=== PATIENT | female | born 2000 | race American Indian/Alaskan Native ===

== ENCOUNTER 2019-09-22 06:32 | Emergency (ER) | payer MEDICAID ==
[2019-09-22 08:13] LABS: Basophils % (Auto) 0.5 % (0.0-1.8); Eosinophils # (Auto) 0.1 K/mm3 (0.0-0.4); Eosinophils % (Auto) 0.9 % (0.0-4.3); Hematocrit 26.6 % (30.3-42.9); Hemoglobin 9.2 gm/dl (10.1-14.3); Lymphocytes # (Auto) 2.1 K/mm3 (1.2-5.4); Lymphocytes % (Auto) 36.8 % (13.4-35.0); Mean Corpuscular HGB Conc 35 % (30-34); Mean Corpuscular Volume 101 fl (79-97); Monocytes # (Auto) 0.4 K/mm3 (0.0-0.8); Monocytes % (Auto) 7.3 % (0.0-7.3); Platelet Count 222 K/mm3 (140-440); Red Blood Count 2.64 M/mm3 (3.65-5.03); Red Cell Distribution Width 13.4 % (13.2-15.2)
[2019-09-22 09:32] LABS: Alanine Aminotransferase 29 units/L (7-56); Albumin 4.3 g/dL (3.9-5); BUN/Creatinine Ratio 10; Blood Urea Nitrogen 10 mg/dL (7-17); Calcium 7.7 mg/dL (8.4-10.2); Hemolysis Index 6
--- NOTE | 2019-09-22 09:39 | Emergency Department Report ---
ED General Adult HPI - General Chief complaint: Abdominal Pain Stated complaint: W/ABD PAIN CRAMPING Time Seen by Provider: 09/22/19 08:56 Source: patient Mode of arrival: Ambulatory Limitations: No Limitations - History of Present Illness Initial comments: Patient is a 19-year-old female presents emergency room with complaints of generalized abdominal cramping and lightheadedness began yesterday. pt is currently but does not know how far along she is. She has not yet seen an SPECIAL NEEDS CAREGIVER secondary to to waiting for her insurance. She denies any nausea, vomiting, diarrhea, fever, urinary symptoms, vaginal discharge, vaginal bleedin g, headache. She states her last menstrual cycle was in June but she has irregular cycles. She states that she is taking a vitamin. Patient has a past medical history of thyroid cancer status post surgical resection. She denies any allergies medications. She states is her first . - Related Data Previous Rx's Medication Instructions Recorded Last Taken Type 21/Iron Fu/Folic Acid 1 each PO DAILY #30 tablet 08/16/19 Unknown Rx [ Complete Caplet] Allergies Allergy/AdvReac Type Severity Reaction Status Date / Time No Known Allergies Allergy Unverified 08/16/19 09:08 ED Review of Systems ROS: Stated complaint: W/ABD PAIN CRAMPING Other details as noted in HPI Comment: All other systems reviewed and negative ED Past Medical Hx - Past Medical History Previous Medical History?: Yes Additional medical history: Hx Thyroid CA - Surgical History Past Surgical History?: Yes Additional Surgical History: Thyroid surgery - Social History Smoking Status: Never Smoker Substance Use Type: None - Medications Home Medications: Home Medications Medication Instructions Recorded Confirmed Last Taken Type 21/Iron Fu/Folic Acid 1 each PO DAILY #30 tablet 08/16/19 Unknown Rx [ Complete Caplet] ED Physical Exam - General Limitations: No Limitations General appearance: alert, in no apparent distress - Head Head exam: Present: atraumatic, normocephalic - Eye Eye exam: Present: normal appearance - ENT ENT exam: Present: mucous membranes moist - Respiratory Respiratory exam: Present: normal lung sounds bilaterally. Absent: respiratory distress, wheezes, rales, rhonchi, stridor, chest wall tenderness, accessory muscle use, decreased breath sounds, prolonged expiratory - Cardiovascular Cardiovascular Exam: Present: regular rate, normal rhythm, normal heart sounds. Absent: systolic murmur, diastolic murmur, rubs, gallop - GI/Abdominal GI/Abdominal exam: Present: soft, normal bowel sounds. Absent: distended, tenderness, guarding, rebound, rigid - Neurological Exam Neurological exam: Present: alert, oriented X3 - Psychiatric Psychiatric exam: Present: normal affect, normal mood - Skin Skin exam: Present: warm, dry, intact ED Course Vital Signs 09/22/19 06:40 Temperature 98.0 F Pulse Rate 79 Respiratory 14 Rate Blood Pressure 113/57 O2 Sat by Pulse 100 Oximetry ED Medical Decision Making - Lab Data Result diagrams: 09/22/19 07:01 09/22/19 07:01 Lab Results 09/22/19 09/22/19 09/22/19 Range/Units 07:01 07:01 07:01 WBC 5.8 (4.5-11.0) K/mm3 RBC 2.64 L (3.65-5.03) M/mm3 Hgb 9.2 L (10.1-14.3) gm/dl Hct 26.6 L (30.3-42.9) % MCV 101 H (79-97) fl MCH 35 H (28-32) pg MCHC 35 H (30-34) % RDW 13.4 (13.2-15.2) % Plt Count 222 (140-440) K/mm3 Lymph % (Auto) 36.8 H (13.4-35.0) % [place] % (Auto) 7.3 (0.0-7.3) % Eos % (Auto) 0.9 (0.0-4.3) % Baso % (Auto) 0.5 (0.0-1.8) % Lymph # 2.1 (1.2-5.4) K/mm3 [place] # 0.4 (0.0-0.8) K/mm3 Eos # 0.1 (0.0-0.4) K/mm3 Baso # 0.0 (0.0-0.1) K/mm3 Seg Neutrophils % 54.5 (40.0-70.0) % Seg Neutrophils # 3.1 (1.8-7.7) K/mm3 Sodium 138 (137-145) mmol/L Potassium 3.9 (3.6-5.0) mmol/L Chloride 102.7 (98-107) mmol/L Carbon Dioxide 20 L (22-30) mmol/L Anion Gap 19 mmol/L BUN 10 (7-17) mg/dL Creatinine 1.0 (0.7-1.2) mg/dL Estimated GFR > 60 ml/min BUN/Creatinine Ratio 10 % Glucose 76 (65-100) mg/dL Calcium 7.7 L (8.4-10.2) mg/dL Total Bilirubin 0.30 (0.1-1.2) mg/dL AST 43 H (5-40) units/L ALT 29 (7-56) units/L Alkaline Phosphatase 49 (35-129) units/L Total Protein 6.9 (6.3-8.2) g/dL Albumin 4.3 (3.9-5) g/dL Albumin/Globulin Ratio 1.7 % HCG, Quant 22379 H (0-4) mIU/mL Urine Color (Yellow) Urine Turbidity (Clear) Urine pH (5.0-7.0) Ur Specific [place] (1.003-1.030) Urine Protein (Negative) mg/dL Urine Glucose (UA) (Negative) mg/dL Urine Ketones (Negative) mg/dL Urine Blood (Negative) Urine Nitrite (Negative) Urine Bilirubin (Negative) Urine Urobilinogen (<2.0) mg/dL Ur Leukocyte Esterase (Negative) Urine WBC (Auto) (0.0-6.0) /HPF Urine RBC (Auto) (0.0-6.0) /HPF U Epithel Cells (Auto) (0-13.0) /HPF Urine Mucus /HPF 09/22/19 Range/Units 09:14 WBC (4.5-11.0) K/mm3 RBC (3.65-5.03) M/mm3 Hgb (10.1-14.3) gm/dl Hct (30.3-42.9) % MCV (79-97) fl MCH (28-32) pg MCHC (30-34) % RDW (13.2-15.2) % Plt Count (140-440) K/mm3 Lymph % (Auto) (13.4-35.0) % [place] % (Auto) (0.0-7.3) % Eos % (Auto) (0.0-4.3) % Baso % (Auto) (0.0-1.8) % Lymph # (1.2-5.4) K/mm3 [place] # (0.0-0.8) K/mm3 Eos # (0.0-0.4) K/mm3 Baso # (0.0-0.1) K/mm3 Seg Neutrophils % (40.0-70.0) % Seg Neutrophils # (1.8-7.7) K/mm3 Sodium (137-145) mmol/L Potassium (3.6-5.0) mmol/L Chloride (98-107) mmol/L Carbon Dioxide (22-30) mmol/L Anion Gap mmol/L BUN (7-17) mg/dL Creatinine (0.7-1.2) mg/dL Estimated GFR ml/min BUN/Creatinine Ratio % Glucose (65-100) mg/dL Calcium (8.4-10.2) mg/dL Total Bilirubin (0.1-1.2) mg/dL AST (5-40) units/L ALT (7-56) units/L Alkaline Phosphatase (35-129) units/L Total Protein (6.3-8.2) g/dL Albumin (3.9-5) g/dL Albumin/Globulin Ratio % HCG, Quant (0-4) mIU/mL Urine Color Yellow (Yellow) Urine Turbidity Slightly-cloudy (Clear) Urine pH 5.0 (5.0-7.0) Ur Specific [place] 1.028 (1.003-1.030) Urine Protein <15 mg/dl (Negative) mg/dL Urine Glucose (UA) Neg (Negative) mg/dL Urine Ketones Neg (Negative) mg/dL Urine Blood Neg (Negative) Urine Nitrite Neg (Negative) Urine Bilirubin Neg (Negative) Urine Urobilinogen < 2.0 (<2.0) mg/dL Ur Leukocyte Esterase Neg (Negative) Urine WBC (Auto) 2.0 (0.0-6.0) /HPF Urine RBC (Auto) 5.0 (0.0-6.0) /HPF U Epithel Cells (Auto) 5.0 (0-13.0) /HPF Urine Mucus 1+ /HPF - Radiology Data Radiology results: report reviewed US OB <= 14 weeks fetus, US OB transvaginal INDICATION / CLINICAL INFORMATION: , abd pain. COMPARISON: 08/16/2019 FINDINGS: Single, viable intrauterine . heart rate 154. [place]-rump length measures 27.6 mm, corresponding to a gestational age of 9 weeks 4 days. Yolk sac is clearly demonstrated. Right ovary is normal. Left ovary could not be identified. There is a small to moderate amount of free fluid in the cul-de-sac. This fluid is anechoic and not thought to repr esent hemorrhage. IMPRESSION: 1. Single, viable 9 week 4 day intrauterine . Signer Name: Harry Mace MD Signed: 09/22/2019 10:42 AM Workstation Name: [id number] Transcribed By: TM Dictated By: Harry Mace MD Electronically Authenticated By: Harry Mace MD Signed Date/Time: 09/22/19 1042 DD/ 1035 TD/TT: - Medical Decision Making Patient is a 19-year-old female presents emergency room with complaints of generalized abdominal cramping and lightheadedness began yesterday. pt is currently but does not know how far along she is. She has not yet seen an SPECIAL NEEDS CAREGIVER secondary to to waiting for her insurance. She denies any nausea, vomiting, diarrhea, fever, urinary symptoms, vaginal discharge, vaginal bleeding, headache. She states her last menstrual cycle was in June but she has irregular cycles. She states that she is taking a vitamin. Patient has a past medical history of thyroid cancer status post surgical resection. She denies any allergies medications. She states is her first . vitals are normal. no abd TTP, no guarding, no rebound, no rigidity. labs with mild anemia which is improved from prior, discussed with pt and advised to [place] [id number]. UA without evidence of UTI or dehydration. OB US: 1. Single, viable 9 week 4 day intrauterine . discussed all results with pt and answered questions. advised pt to please increase your fluid intake over the next several days. Please take your vitamin daily. Follow up with a SPECIAL NEEDS CAREGIVER in the next 2- 3 days to receive your care. Return to the emergency room for any new or worsening symptoms. - Differential Diagnosis IUP, ectopic, ovarian cyst, subchorionic hemorrhage, UTI, electrolyte,anemi Critical care attestation.: If time is entered above; I have spent that time in minutes in the direct care of this critically ill patient, excluding procedure time. ED Disposition Clinical Impression: Lightheaded Qualifiers: Weeks of gestation: 9 weeks Qualified Code(s): Z3A.09 - 9 weeks gestation of p regnancy Abdominal pain Qualifiers: Abdominal location: generalized Qualified Code(s): R10.84 - Generalized abdominal pain Anemia Qualifiers: Anemia type: unspecified type Qualified Code(s): D64.9 - Anemia, unspecified Disposition: DC- TO HOME OR SELFCARE Is pt being admited?: No Does the pt Need Aspirin: No Condition: Stable Instructions: (ED), Iron Rich Diet (ED), Abdominal Pain in (ED), Anemia (ED) Additional Instructions: Please increase your fluid intake over the next several days. Please take your vitamin daily. Follow up with a SPECIAL NEEDS CAREGIVER in the next 2-3 days to receive your care. Return to the emergency room for any new or worsening symp toms. Referrals: [facility] [Provider Group] - 2-3 Days [facility] [Provider Group] - 2-3 Days [facility] [Provider Group] - 2-3 Days Forms: Work/School Release Form(ED) Time of Disposition: 11:13 Print Language: ARMENIAN
[2019-09-22 09:40] LABS: Bilirubin,Urine NEG (Negative); Blood,Urine NEG (Negative); Color,Urine Yellow (Yellow); Mucus,Urine 1+ /HPF; Protein,Urine <15 mg/dL mg/dL (Negative); Urobilinogen,Urine < 2.0 mg/dL (<2.0)
--- NOTE | 2019-09-22 10:46 | Ultrasound Report ---
US OB <= 14 weeks fetus, US OB transvaginal INDICATION / CLINICAL INFORMATION: , abd pain. COMPARISON: 08/16/2019 FINDINGS: Single, viable intrauterine . heart rate 154. [place]-rump length measures 27.6 mm, corresponding to a gestational age of 9 weeks 4 days. Yolk sac is clearly demonstrated. Right ovary is normal. Left ovary could not be identified. There is a small to moderate amount of gallito e fluid in the cul-de-sac. This fluid is anechoic and not thought to represent hemorrhage. IMPRESSION: 1. Single, viable 9 week 4 day intrauterine . Signer Name: Harry Mace MD Signed: 09/22/2019 10:42 AM Workstation Name: [id number]
[2019-09-22 12:23] VITALS: BP 106/73
== END 2019-09-22 11:40 | disposition home or self-care (01) ==
LOC: ED 06:32
DX: O99.011 Anemia complicating pregnancy, first trimester (principal); O26.891 Other specified pregnancy related conditions, first trimester; R10.9 Unspecified abdominal pain; R42 Dizziness and giddiness; Z98.890 Other specified postprocedural states; Z79.899 Other long term (current) drug therapy; Z85.850 Personal history of malignant neoplasm of thyroid; Z3A.09 9 weeks gestation of pregnancy
CPT/HCPCS: 36415; 76801; 76817; 80053; 81001; 84702; 85025

== ENCOUNTER 2020-10-23 08:20 | Emergency (ER) | payer MEDICAID ==
--- NOTE | 2020-10-23 08:39 | Event Note ---
ED Screening Note ED Screening Note: Patient is a 20-year-old female that comes to the emergency room with low back pain, abdominal pain, chest pain. She has had a thyroidectomy and has been off Synthroid for over a year. Patient states she was seen at [place] for her thyroid and they referred her to a clinic but she never followed up. She endorses chills and nausea and vomiting. This is occurred since Wednesday. Patient endorses weakness and fatigue. She is a cigarette smoker. Denies drugs or alcohol. This initial assessment/diagnostic orders/clinical plan/treatment(s) is/are subject to change based on patients health status, clinical progression and re- assessment by fellow clinical providers in the ED. Further treatment and workup at subsequent clinical providers discretion. Patient/guardian urged not to elope from the ED as their condition may be serious if not clinically assessed and managed. Initial orders include: labs/ua
[2020-10-23 09:00] LABS: Hematocrit 24.2 % (30.3-42.9); Hemoglobin 8.4 gm/dl (10.1-14.3); Mean Corpuscular HGB Conc 35 % (30-34); Mean Corpuscular Volume 100 fl (79-97); Platelet Count 222 K/mm3 (140-440); Red Blood Count 2.42 M/mm3 (3.65-5.03); Red Cell Distribution Width 13.2 % (13.2-15.2)
[2020-10-23 09:21] LABS: Albumin 4.9 g/dL (3.9-5)
[2020-10-23 09:28] LABS: Bilirubin,Urine NEG (Negative); Blood,Urine NEG (Negative); Color,Urine Yellow (Yellow); Hyaline Casts,Urine 3 /LPF; Mucus,Urine 2+ /HPF
[2020-10-23 09:31] LABS: HCG Qualitative,Urine Negative (Negative)
[2020-10-23 09:35] LABS: Calcium 6.2 mg/dL (8.4-10.2)
--- NOTE | 2020-10-23 10:11 | Emergency Department Report ---
ED General Adult HPI - General Chief complaint: Abdominal Pain Stated complaint: STOMACH,BACK,CHEST PAIN/VOMITTING Time Seen by Provider: 10/23/20 08:37 Source: patient Mode of arrival: Ambulatory Limitations: No Limitations - History of Present Illness Initial comments: Chief complaint: "I hurt all over." HPI: This is a 20-year-old female with history of anemia, thyroid cancer status post thyroidectomy, severe obesity who presents with body aches chest pain abdominal pain back pain for the past 5 days. She also has had chills nausea vomiting sore throat. She works as a sewer cleaner in a retail center. No known sick contacts. Back mild lower ache. Chest mild heaviness. Stomach feels like queasiness. She is currently pain-free. She has not taken Synthroid in over a year. -: Gradual, days(s) (5 days) Location: chest, back, abdomen Severity scale (0 -10): 0 Consistency: now resolved Improves with: none Worsens with: none Associated Symptoms: other (Chills sore throat) Treatments Prior to Arrival: none - Related Data Previous Rx's Medication Instructions Recorded Last Taken Type Levothyroxine [Synthroid] 50 mcg PO QAM #30 tablet 10/23/20 Unknown Rx Allergies Allergy/AdvReac Type Severity Reaction Status Date / Time No Known Allergies Allergy Unverified 08/16/19 09:08 ED Review of Systems ROS: Stated complaint: STOMACH,BACK,CHEST PAIN/VOMITTING Other details as noted in HPI Comment: All other systems reviewed and negative Constitutional: malaise. denies: chills, fever ENT: throat pain Respiratory: denies: cough, shortness of breath Cardiovascular: chest pain Gastrointestinal: abdominal pain Musculoskeletal: back pain ED Past Medical Hx - Past Medical History Previous Medical History?: Yes Additional medical history: Hx Thyroid CA - Surgical History Past Surgical History?: Yes Additional Surgical History: Thyroid surgery - Social History Smoking Status: Never Smoker Substance Use Type: None - Medications Home Medications: Home Medications Medication Instructions Recorded Confirmed Last Taken Type Levothyroxine [Synthroid] 50 mcg PO QAM #30 tablet 10/23/20 Unknown Rx ED Physical Exam - General Limitations: No Limitations General appearance: alert, in no apparent distress, other (No acute distress appears comfortable nontoxic appears quite well) - Head Head exam: Present: atraumatic, normocephalic - Eye Eye exam: Present: normal appearance - ENT ENT exam: Present: mucous membranes moist - Neck Neck exam: Present: normal inspection, full ROM - Respiratory Respiratory exam: Present: normal lung sounds bilaterally. Absent: respiratory distress, wheezes, rales, rhonchi - Cardiovascular Cardiovascular Exam: Present: regular rate, normal rhythm, normal heart sounds. Absent: systolic murmur, diastolic murmur, rubs, gallop - GI/Abdominal GI/Abdominal exam: Present: soft, normal bowel sounds. Absent: distended, tenderness, guarding, rebound - Extremities Exam Extremities exam: Present: normal inspection - Neurological Exam Neurological exam: Present: alert, oriented X3 - Psychiatric Psychiatric exam: Present: normal affect, normal mood - Skin Skin exam: Present: warm, dry, intact, normal color. Absent: rash ED Course Vital Signs 10/23/20 10/23/20 08:35 09:58 Temperature 98.1 F Pulse Rate 85 79 Respiratory 20 14 Rate Blood Pressure 108/61 Blood Pressure 93/80 [Left] O2 Sat by Pulse 100 98 Oximetry ED Medical Decision Making - Lab Data Result diagrams: 10/23/20 08:47 10/23/20 08:47 Laboratory Results - last 24 hr 10/23/20 10/23/20 10/23/20 08:47 08:47 08:47 WBC 5.2 RBC 2.42 L Hgb 8.4 L Hct 24.2 L MCV 100 H MCH 35 H MCHC 35 H RDW 13.2 Plt Count 222 Sodium 140 Potassium 3.3 L Chloride 99.8 Carbon Dioxide 28 Anion Gap 16 BUN 14 Creatinine 1.5 H Estimated GFR 53 BUN/Creatinine Ratio 9 Glucose 81 Calcium 6.2 L Total Bilirubin 0.30 AST 65 H ALT 29 Alkaline Phosphatase 73 Total Protein 7.8 Albumin 4.9 Albumin/Globulin Ratio 1.7 Lipase 128 H TSH 100.000 H Urine Color Urine Turbidity Urine pH Ur Specific [place] Urine Protein Urine Glucose (UA) Urine Ketones Urine Blood Urine Nitrite Urine Bilirubin Urine Urobilinogen Ur Leukocyte Esterase Urine WBC (Auto) Urine RBC (Auto) U Epithel Cells (Auto) Hyaline Casts Urine Mucus Urine HCG, Qual 10/23/20 09:08 WBC RBC Hgb Hct MCV MCH MCHC RDW Plt Count Sodium Potassium Chloride Carbon Dioxide Anion Gap BUN Creatinine Estimated GFR BUN/Creatinine Ratio Glucose Calcium Total Bilirubin AST ALT Alkaline Phosphatase Total Protein Albumin Albumin/Globulin Ratio Lipase TSH Urine Color Yellow Urine Turbidity Slightly-cloudy Urine pH 5.0 Ur Specific [place] 1.029 Urine Protein 100 mg/dl Urine Glucose (UA) Neg Urine Ketones Neg Urine Blood Neg Urine Nitrite Neg Urine Bilirubin Neg Urine Urobilinogen 2.0 Ur Leukocyte Esterase Neg Urine WBC (Auto) 5.0 Urine RBC (Auto) 1.0 U Epithel Cells (Auto) 4.0 Hyaline Casts 3 Urine Mucus 2+ Urine HCG, Qual Negative - Medical Decision Making Constellation symptoms: Suspect COVID-19 infection, also suspect symptoms likely related to severe secondary hypothyroidism I have prescribed levothyroxine, given patient referral to outpatient medicine physician. She understands the upmost need for lifelong thyroid hormone re placement therapy I do not suspect sepsis or acute bacterial infection. Patient is symptom-free at this time. Work-up notable for baseline anemia, mild hypokalemia, elevated AST, equivocal lipase, TSH markedly elevated at 100 Critical care attestation.: If time is entered above; I have spent that time in minutes in the direct care of this critically ill patient, excluding procedure time. ED Disposition Clinical Impression: Suspected COVID-19 virus infection, Hypothyroidism (acquired), Elevated TSH Disposition: DC-01 TO HOME OR SELFCARE Is pt being admited?: No Does the pt Need Aspirin: No Condition: Stable Instructions: Hypothyroidism, Abdominal Pain (ED) Prescriptions: Levothyroxine [Synthroid] 50 mcg PO QAM #30 tablet Referrals: TERESA NAVARRO MD [Staff Physician] - 3-5 Days Forms: Work/School Release Form(ED)
[2020-10-23 10:29] VITALS: BP 101/65
== END 2020-10-23 10:29 | disposition home or self-care (01) ==
LOC: ED 08:20
DX: E03.9 Hypothyroidism, unspecified (principal); R79.89 Other specified abnormal findings of blood chemistry; Z79.899 Other long term (current) drug therapy; Z98.890 Other specified postprocedural states; Z20.822 Contact with and (suspected) exposure to COVID-19
CPT/HCPCS: 36415; 80053; 81001; 81025; 83690; 84443; 85027; 99283

== ENCOUNTER 2021-10-12 14:38 | Emergency (ER) | payer MEDICAID ==
[2021-10-12 17:12] LABS: Bilirubin,Urine NEG (Negative); Blood,Urine NEG (Negative); Color,Urine Amber (Yellow); Urobilinogen,Urine < 2.0 mg/dL (<2.0)
[2021-10-12 17:16] LABS: RBC,Urine < 1.0 /HPF (0.0-6.0); WBC,Urine < 1.0 /HPF (0.0-6.0)
--- NOTE | 2021-10-12 17:54 | Emergency Department Report ---
ED Dizziness HPI - General Chief Complaint: Syncope Stated Complaint: ABD PAIN/HEADACHE/DIZZINESS Time Seen by Provider: 10/12/21 15:23 Source: patient Mode of arrival: Ambulatory Limitations: No Limitations - History of Present Illness Initial Comments: 21-year-old black female who is 6-1/2 months , G2, P0 presents to the emergency department for evaluation of lightheadedness, dizziness, nausea, and vomiting twice this morning. She states that symptoms are now resolved but she still does have intermittent dizziness and has been for several times. She denies headache, abdominal pain, fever, and dysuria. MD Complaint: dizziness, lightheadedness -: Gradual, days(s) Timing: gradual onset, intermittent Description: lightheadedness History of Same: Yes History of Trauma: No Severity: mild Improves With: nothing Associated Symptoms: denies: chest pain, confusion, cough, diaphoresis, fever/chills, loss of appetite, malaise, rash, seizure, shortness of breath - Related Data Previous Rx's Medication Instructions Recorded Last Taken Type Levothyroxine [Synthroid] 50 mcg PO QAM #30 tablet 10/23/20 Unknown Rx Nitrofurantoin Taliaferro/M-Cryst 100 mg PO Q12HR #14 capsule 10/12/21 Unknown Rx [Macrobid CAP] Allergies Allergy/AdvReac Type Severity Reaction Status Date / Time No Known Allergies Allergy Unverified 08/16/19 09:08 ED Review of Systems ROS: Stated complaint: ABD PAIN/HEADACHE/DIZZINESS Other details as noted in HPI Comment: All other systems reviewed and negative Constitutional: denies: chills, diaphoresis, fever, malaise, weakness Eyes: denies: eye pain ENT: denies: ear pain Respiratory: denies: cough, orthopnea, shortness of breath Cardiovascular: denies: chest pain, palpitations, dyspnea on exertion, edema, syncope Endocrine: no symptoms reported Gastrointestinal: denies: abdominal pain, nausea, vomiting, diarrhea, constipation, hematemesis, melena, hematochezia Genitourinary: denies: urgency, dysuria, frequency Musculoskeletal: denies: back pain, joint swelling Skin: denies: rash, lesions Neurological: denies: headache, weakness, numbness, paresthesias, confusion, abnormal gait Psychiatric: denies: anxiety, depression Hematological/Lymphatic: denies: easy bleeding, easy bruising ED Past Medical Hx - Past Medical History Additional medical history: Hx Thyroid CA - Surgical History Additional Surgical History: Thyroid surgery - Social History Smoking Status: Never Smoker Substance Use Type: None - Medications Home Medications: Home Medications Medication Instructions Recorded Confirmed Last Taken Type Levothyroxine [Synthroid] 50 mcg PO QAM #30 tablet 10/23/20 Unknown Rx Nitrofurantoin Taliaferro/M-Cryst 100 mg PO Q12HR #14 capsule 10/12/21 Unknown Rx [Macrobid CAP] ED Physical Exam - General Limitations: No Limitations General appearance: alert, in no apparent distress - Head Head exam: Present: atraumatic, normocephalic - Eye Eye exam: Present: normal appearance. Absent: conjunctival injection - Neck Neck exam: Present: normal inspection. Absent: tenderness - Respiratory Respiratory exam: Present: normal lung sounds bilaterally. Absent: respiratory distress, wheezes, rales, rhonchi, chest wall tenderness, accessory muscle use - Cardiovascular Cardiovascular Exam: Present: regular rate, normal heart sounds - GI/Abdominal GI/Abdominal exam: Present: soft, normal bowel sounds. Absent: distended, tenderness, guarding, rebound - Extremities Exam Extremities exam: Present: normal inspection, full ROM - Back Exam Back exam: Present: normal inspection, full ROM. Absent: tenderness, CVA tenderness (R), CVA tenderness (L) - Neurological Exam Neurological exam: Present: alert, oriented X3 - Psychiatric Psychiatric exam: Present: normal affect, normal mood - Skin Skin exam: Present: warm, dry, intact, normal color ED Course Vital Signs 10/12/21 15:15 Temperature 98.4 F Pulse Rate 96 H Respiratory 16 Rate Blood Pressure 110/62 [Right] O2 Sat by Pulse 97 Oximetry ED Medical Decision Making - Medical Decision Making 21-year-old black female who is 6-1/2 months , G2, P0 presents to the emergency department for evaluation of lightheadedness, dizziness, nausea, and vomiting twice this morning. She states that symptoms are now resolved but she still does have intermittent dizziness and has been for several times. She denies headache, abdominal pain, fever, and dysuria. Patient continues to deny any symptoms at this time. UA positive for UTI. Will treat with 7-day course of Macrobid 100 mg twice daily. She was advised to take medications as prescribed and follow-up with [facility] as previously planned. She verbalized understanding of and agreement with plan of care. Critical care attestation.: If time is entered above; I have spent that time in minutes in the direct care of this critically ill patient, excluding procedure time. ED Disposition Clinical Impression: UTI (urinary tract infection) Qualifiers: Urinary tract infection type: acute cystitis Hematuria presence: without hematuria Qualified Code(s): N30.00 - Acute cystitis without hematuria Disposition: HOME / SELF CARE / HOMELESS Is pt being admited?: No Does the pt Need Aspirin: No Condition: Stable Instructions: and Urinary Tract Infection Additional Instructions: Take medications as prescribed. Drink plenty of fluids. Follow-up with [facility] for further evaluation. Return to the emergency department if worsening symptoms. Prescriptions: Nitrofurantoin Taliaferro/M-Cryst [Macrobid CAP] 100 mg PO Q12HR #14 capsule Referrals: KALEE ALONSO MD [Referring] - 3-5 Days Time of Disposition: 17:54
[2021-10-12 18:16] VITALS: BP 120/81
== END 2021-10-12 18:14 | disposition home or self-care (01) ==
LOC: ED 14:38
DX: O23.91 Unspecified genitourinary tract infection in pregnancy, first trimester (principal); N39.0 Urinary tract infection, site not specified; Z3A.01 Less than 8 weeks gestation of pregnancy
CPT/HCPCS: 81001; 99283

== ENCOUNTER 2021-11-16 20:37 | Outpatient (CLI) | payer MEDICAID ==
[2021-11-16 20:57] VITALS: BP 107/56
[2021-11-16] MEDS ORDERED: LACTATED RINGERS 1,000 ML IV ONE (21:39)
[2021-11-16] MEDS ORDERED: NIFEdipine*For Tocolysis only* 10 MG CAPSULE PO ONE (23:54)
== END 2021-11-17 00:30 | disposition home or self-care (01) ==
LOC: TRG 20:37 → APU 20:45 → TRG 11-17 00:30
PROVIDERS: ATTEND Obstetrics & Gynecology
DX: O26.893 Other specified pregnancy related conditions, third trimester (principal); R10.9 Unspecified abdominal pain; Z3A.35 35 weeks gestation of pregnancy
CPT/HCPCS: 59025; 96360; J7120